=== PATIENT | female | born 2000 | race Caucasian/White ===

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

== ENCOUNTER 2021-09-07 06:28 | Emergency (ER) | payer BC, MEDICAID ==
[2021-09-07 06:43] VITALS: BP 121/89; PULSE 96
[2021-09-07] MEDS ORDERED: Sodium Chloride 0.9% 10 ML Syringe FLUSH PRN (07:06)
--- NOTE | 2021-09-07 07:31 | EDM.PDOC ---
ED HPI GENERAL MEDICAL PROBLEM - General Chief Complaint: Abdominal Pain Stated Complaint: [id number] STOMACH PAINS LEFT SIDE Time Seen by Provider: 09/07/21 07:00 Source of Information: Reports: Patient, Old Records, RN, RN Notes Reviewed History Limitations: Reports: No Limitations - History of Present Illness INITIAL COMMENTS - FREE TEXT/NARRATIVE: Pt presents to ER with c/o left sided abdominal pain x1 month. Pt states that initially the pain was at the LLQ and would come and go. She tried OTC products for constipation, but had no change in the symptoms. She then tried OTC products for gas without relief. The pain has slowly progressed and worsened. The pain is nearly constant now, but suddenly has sharp jabs that are severe and cause her to become nauseated. Recently the pain has increased in the area involved, now with pain from the suprapubic area to the LLQ, LUQ, and occasionally epigastric region. Denies fever, chills, vomiting, diarrhea, constipation, dysuria, flank pain, , irregular vaginal bleeding or vaginal discharge, rash, or unusual weight loss or gain. Duration: Constant, Recurring, Waxing/Waning Location: Reports: Abdomen Quality: Reports: Ache, Sharp Severity: Severe Improves with: Reports: None Worsens with: Reports: None Associated Symptoms: Reports: No Other Symptoms Left Lower Abdomen Pain Score (Numeric/FACES): 6 - Related Data Allergies Allergy/AdvReac Type Severity Reaction Status Date / Time No Known Allergies Allergy Verified 09/07/21 06:37 Home Meds: Home Meds Clindamycin HCl 150 mg PO DAILY 09/07/21 [History] Spironolactone [Aldactone] 25 mg PO DAILY 09/07/21 [History] Past Medical History - Past Health History Medical/Surgical History: Denies Medical/Surgical History HEENT History: Reports: None Cardiovascular History: Reports: None Respiratory History: Reports: None Gastrointestinal History: Reports: None Genitourinary History: Reports: None RESEARCH PHYSICIAN History: Reports: None Musculoskeletal History: Reports: None Neurological History: Reports: None Psychiatric History: Reports: None Endocrine/Metabolic History: Reports: None Hematologic History: Reports: None Immunologic History: Reports: None Oncologic (Cancer) History: Reports: None Dermatologic History: Reports: None - Infectious Disease History Infectious Disease History: Reports: None - Past Surgical History Head Surgeries/Procedures: Reports: None HEENT Surgical History: Reports: Other (See Below) Other HEENT Surgeries/Procedures: wisdom teeth removal Female Surgical History: Reports: D&C Social & Family History - Family History Family Medical History: No Pertinent Family History - Tobacco Use Tobacco Use Status *Q: Never Tobacco User - Caffeine Use Caffeine Use: Reports: Coffee, Energy Drinks, Soda - Recreational Drug Use Recreational Drug Use: No - Living Situation & Occupation Living situation: Reports: with Family Occupation: Student ED ROS GENERAL - Review of Systems Review Of Systems: Comprehensive ROS is negative, except as noted in HPI. ED EXAM, GI/ABD - Physical Exam Exam: See Below Exam Limited By: No Limitations General Appearance: Alert, WD/WN, No Apparent Distress Eyes: Bilateral: Normal Appearance (No scleral icterus) Nose: Normal Inspection Throat/Mouth: Normal Lips, Normal Voice, No Airway Compromise Head: Atraumatic, Normocephalic Neck: Normal Inspection Respiratory/Chest: No Respiratory Distress, Lungs Clear, Normal Breath Sounds, No Accessory Muscle Use, Chest Non-Tender Cardiovascular: Regular Rate, Rhythm, No Edema GI/Abdominal Exam: Normal Bowel Sounds, Soft, No Organomegaly, No Distention, No Abnormal Bruit, No Mass, Pelvis Stable, Tender (LLQ). No: Guarding, Rigid, Rebound (Female) Exam: Deferred Rectal (Female) Exam: Deferred Back Exam: Full Range of Motion. No: CVA Tenderness (L), CVA Tenderness (R), Vertebral Tenderness Extremities: Normal Inspection Neurological: Alert, Oriented, No Motor/Sensory Deficits Psychiatric: Normal Mood Skin Exam: Warm, Dry, Intact, Normal Color, No Rash Course - Vital Signs Last Recorded V/S: Last Vital Signs Temp 98.8 F 09/07/21 06:39 Pulse 96 09/07/21 06:39 Resp 16 09/07/21 06:39 BP 121/89 09/07/21 06:39 Pulse Ox 96 09/07/21 06:39 - Orders/Labs/Meds Orders: Active Orders 24 hr Category Date Time Status Peripheral IV Care [RC] . DIRECTED Care 09/07/21 07:07 Active Sodium Chloride 0.9% [Saline Flush] Med 09/07/21 07:06 Active 10 ml FLUSH ASDIRECTED PRN Peripheral IV Insertion Adult [OM.PC] Stat Oth 09/07/21 07:07 Ordered Medication Orders Sodium Chloride (Sodium Chloride 0.9% 10 Ml Syringe) 10 ml FLUSH ASDIRECTED PRN PRN Reason: Keep Vein Open Last Admin: 09/07/21 07:21 Dose: 10 ml Documented by: COMPA Labs: Laboratory Tests 09/07/21 09/07/21 09/07/21 Range/Units 07:09 07:09 07:21 WBC 4.4 L (5.0-10.0) 10^3/uL RBC 4.71 (4.2-5.4) 10^6/uL Hgb 13.7 (12.0-16.0) g/dL Hct 41.8 (37.0-47.0) % MCV 88.7 (80-100) fL MCH 29.1 (27.0-34.0) pg MCHC 32.8 L (33.0-35.0) g/dL Plt Count 190 (150-450) 10^3/uL Neut % (Auto) 61.3 (42.2-75.2) % Lymph % (Auto) 32.1 (20.5-50.1) % [place] % (Auto) 5.7 (2-8) % Eos % (Auto) 0.7 L (1.0-3.0) % Baso % (Auto) 0.2 (0.0-1.0) % Sodium (136-145) mmol/L Potassium (3.5-5.1) mmol/L Chloride (98-107) mmol/L Carbon Dioxide (21-32) mmol/L Anion Gap (7-13) mEq/L BUN (7-18) mg/dL Creatinine (0.55-1.02) mg/dL Est Cr Clr Drug Dosing mL/min Estimated GFR (MDRD) BUN/Creatinine Ratio (No establ ref range) Glucose (70-99) mg/dL Calcium (8.5-10.1) mg/dL Total Bilirubin (0.2-1.0) mg/dL AST (15-37) U/L ALT (14-59) U/L Alkaline Phosphatase (46-116) U/L C-Reactive Protein (0.0-0.9) mg/dL Total Protein (6.4-8.2) g/dL Albumin (3.4-5.0) g/dL Globulin Albumin/Globulin Ratio Amylase (25-115) U/L Lipase (73-393) U/L TSH, Ultra Sensitive (0.36-3.74) uIU/mL Urine Color Yellow (YELLOW) Urine Appearance Clear (CLEAR) Urine pH 7.0 (5.0-9.0) Ur Specific [place] 1.020 (1.005-1.030) Urine Protein Negative (NEGATIVE) Urine Glucose (UA) Negative (NEGATIVE) Urine Ketones Negative (NEGATIVE) Urine Occult Blood Negative (NEGATIVE) Urine Nitrite Negative (NEGATIVE) Urine Bilirubin Negative (NEGATIVE) Urine Urobilinogen 0.2 (0.2-1.0) mg/dL Ur Leukocyte Esterase Negative (NEGATIVE) Urine HCG, Qual Negative 09/07/21 Range/Units 07:21 WBC (5.0-10.0) 10^3/uL RBC (4.2-5.4) 10^6/uL Hgb (12.0-16.0) g/dL Hct (37.0-47.0) % MCV (80-100) fL MCH (27.0-34.0) pg MCHC (33.0-35.0) g/dL Plt Count (150-450) 10^3/uL Neut % (Auto) (42.2-75.2) % Lymph % (Auto) (20.5-50.1) % [place] % (Auto) (2-8) % Eos % (Auto) (1.0-3.0) % Baso % (Auto) (0.0-1.0) % Sodium 142 (136-145) mmol/L Potassium 4.0 (3.5-5.1) mmol/L Chloride 103 (98-107) mmol/L Carbon Dioxide 27 (21-32) mmol/L Anion Gap 16.0 H (7-13) mEq/L BUN 9 (7-18) mg/dL Creatinine 0.89 (0.55-1.02) mg/dL Est Cr Clr Drug Dosing 71.62 mL/min Estimated GFR (MDRD) > 60 BUN/Creatinine Ratio 10.1 (No establ ref range) Glucose 100 H (70-99) mg/dL Calcium 9.5 (8.5-10.1) mg/dL Total Bilirubin 0.4 (0.2-1.0) mg/dL AST 24 (15-37) U/L ALT 29 (14-59) U/L Alkaline Phosphatase 101 (46-116) U/L C-Reactive Protein < 0.2 (0.0-0.9) mg/dL Total Protein 8.3 H (6.4-8.2) g/dL Albumin 4.9 (3.4-5.0) g/dL Globulin 3.4 Albumin/Globulin Ratio 1.4 Amylase 74 (25-115) U/L Lipase 115 (73-393) U/L TSH, Ultra Sensitive 2.85 (0.36-3.74) uIU/mL Urine Color (YELLOW) Urine Appearance (CLEAR) Urine pH (5.0-9.0) Ur Specific [place] (1.005-1.030) Urine Protein (NEGATIVE) Urine Glucose (UA) (NEGATIVE) Urine Ketones (NEGATIVE) Urine Occult Blood (NEGATIVE) Urine Nitrite (NEGATIVE) Urine Bilirubin (NEGATIVE) Urine Urobilinogen (0.2-1.0) mg/dL Ur Leukocyte Esterase (NEGATIVE) Urine HCG, Qual Meds: Medications Generic Name Dose Route Start Last Admin Trade Name Freq PRN Reason Stop Dose Admin Sodium Chloride 10 ml 09/07/21 07:06 09/07/21 07:21 Sodium Chloride 0.9% 10 Ml Syringe FLUSH 10 ml ASDIRECTED PRN Administration Keep Vein Open - Radiology Interpretation Free Text/Narrative:: [facility] Final Radiology Report Call: [phone] assistance Online chat: [email or web address] Name: ELIJAH ROGERS Age: 20Years F Date: 09/07/2021 SSN: -- : 2000 Study: CR ABDOMEN 2V AP FLAT UPRIGHT Requesting Physician: RIGOBERTO SRINIVASAN Images: 2 Addl Studies: Provided Clinical History: Left abdominal pain Contrast: Contrast Medium: Contrast Amount: Contrast Method: CONFIDENTIALITY STATEMENT This report is intended only for use by the referring physician, and only in accordance with law. If you received this in error, call [phone]. Page 1 of 1 PROCEDURE INFORMATION: Exam: XR Abdomen Exam date and time: 09/07/2021 8:20 AM Age: 20 years old Clinical indication: Other: Left abd pain x 1 month; Additional info: Left abdominal pain TECHNIQUE: Imaging protocol: XR of the abdomen. Views: 2 Views. Upright and supine views. COMPARISON: No relevant prior exams. FINDINGS: Gastrointestinal tract: Normal. No bowel dilation. Intraperitoneal space: Normal. No free air. Bones/joints: Unremarkable for age. IMPRESSION: No acute findings. Thank you for allowing us to participate in the care of your patient. Dictated and Authenticated by: Ranulfo Goldstein MD 09/07/2021 8:52 AM Central Time ([place] & [place]) Departure - Departure Time of Disposition: 08:58 Disposition: Home, Self-Care 01 Condition: Good Clinical Impression: Abdominal pain Qualifiers: Abdominal location: left lower quadrant Qualified Code(s): R10.32 - Left lower quadrant pain - Discharge Information *PRESCRIPTION DRUG MONITORING PROGRAM REVIEWED*: Not Applicable *COPY OF PRESCRIPTION DRUG MONITORING REPORT IN PATIENT GRIFFIN: Not Applicable Instructions: Abdominal Pain, Adult, Pzca-[id number], Ovarian Cyst, [id number]-[id number] Forms: ED Department Discharge Additional Instructions: Follow up in clinic for further evaluation and consideration of ultrasound for ovarian cyst. Sepsis Event Note (ED) - Evaluation Sepsis Screening Result: No Definite Risk - Focused Exam Vital Signs: Vital Signs Temp Pulse Resp BP Pulse Ox 09/07/21 06:39 98.8 F 96 16 121/89 96 - My Orders Last 24 Hours: My Active Orders 09/07/21 07:06 Sodium Chloride 0.9% [Saline Flush] 10 ml FLUSH ASDIRECTED PRN 09/07/21 07:07 Peripheral IV Care [RC] . DIRECTED Peripheral IV Insertion Adult [OM.PC] Stat - Assessment/Plan Last 24 Hours: My Active Orders 09/07/21 07:06 Sodium Chloride 0.9% [Saline Flush] 10 ml FLUSH ASDIRECTED PRN 09/07/21 07:07 Peripheral IV Care [RC] . DIRECTED Peripheral IV Insertion Adult [OM.PC] Stat
[2021-09-07 07:55] LABS: CHLORIDE,CL 103 mmol/L (98-107); SODIUM,NA 142 mmol/L (136-145)
--- NOTE | 2021-09-07 08:53 | CR ---
PROCEDURE INFORMATION: Exam: XR Abdomen Exam date and time: 09/07/2021 8:20 AM Age: 20 years old Clinical indication: Other: Left abd pain x 1 month; Additional info: Left abdominal pain TECHNIQUE: Imaging protocol: XR of the abdomen. Views: 2 Views. Upright and supine views. COMPARISON: No relevant prior exams. FINDINGS: Gastrointestinal tract: Normal. No bowel dilation. Intraperitoneal space: Normal. No free air. Bones/joints: Unremarkable for age. IMPRESSION: No acute findings.
== END 2021-09-07 09:06 | disposition home or self-care (01) ==
LOC: DL.ED 06:28
DX: R10.32 Left lower quadrant pain (principal)
CPT/HCPCS: 36415; 74019; 80053; 81003; 81025; 82150; 83690; 84443; 85025; 86140; 99284-25

== ENCOUNTER 2023-10-03 03:11 | Inpatient (IN) | payer BC ==
[2023-10-03] MEDS ORDERED: Misoprostol 50 MCG (1/2 of 100 MCG) Tab VAG ONE (07:43)
[2023-10-03] MEDS ORDERED: Sodium Chloride 0.9% 10 ML Syringe FLUSH PRN (08:44)
[2023-10-03] MEDS ORDERED: Ondansetron 4 MG/2 ML SDV IVPUSH PRN (08:44)
[2023-10-03] MEDS ORDERED: Misoprostol 400 MCG (4 X 100 MCG TAB) RECTAL PRN (08:44)
[2023-10-03] MEDS ORDERED: Lidocaine 1% 30 ML SDV INJECT ONE (08:44)
[2023-10-03] MEDS ORDERED: Carboprost Tromethamine 250 MCG/1 ML Amp IM PRN (08:44)
[2023-10-03] MEDS ORDERED: Methylergonovine 0.2 MG/1 ML Amp IM PRN (08:44)
[2023-10-03] MEDS ORDERED: Lactated Ringers 1,000 ML IV ONE (08:44)
[2023-10-03] MEDS ORDERED: Acetaminophen 325 MG Tab PO PRN (08:44)
[2023-10-03] MEDS ORDERED: Tranexamic Acid 1,000 MG in Sodium Chloride 0.9% 100 ML IV PRN (08:44)
[2023-10-03] MEDS ORDERED: Lactated Ringers 1,000 ML IV SCH (08:45)
[2023-10-03] MEDS: Oxytocin/Normal Saline 30 UNIT/500 ML BAG IV SCH (08:50)
[2023-10-03 08:56] LABS: HEMATOCRIT 30.5 % (37.0-47.0); HEMOGLOBIN 9.8 g/dL (12.0-16.0); MEAN CORPUSCULAR HEMOGLOBIN 28.2 pg (27.0-34.0); MEAN CORPUSCULAR HGB CONC 32.1 g/dL (33.0-35.0); MEAN CORPUSCULAR VOLUME 87.6 fL (80-100); RED BLOOD CELL COUNT 3.48 10^6/uL (4.2-5.4); WHITE BLOOD CELL COUNT,WBC 10.9 10^3/uL (5.0-10.0)
[2023-10-03] MEDS ORDERED: hydrOXYzine HCl 25 MG Tab PO ONE (13:33)
[2023-10-03] MEDS ORDERED: hydrOXYzine HCl 25 MG Tab ONE (13:34)
[2023-10-03] MEDS: fentaNYL 100 MCG/2 ML SDV IVPUSH PRN ×3 (17:22→19:47)
[2023-10-03] MEDS ORDERED: fentaNYL 100 MCG/2 ML SDV ONE ×2 (20:17→20:49)
[2023-10-03] MEDS ORDERED: Bupivacaine 0.25% 10 ML SDV ONE (20:18)
[2023-10-03] MEDS ORDERED: Phenylephrine HCl In 0.9% NaCl 1 MG/10 ML Syringe IVPUSH PRN (20:45)
[2023-10-03] MEDS ORDERED: Ropivacaine 200 MG in Premix Bag 1 BAG EPIDUR SCH (20:45)
[2023-10-03] MEDS ORDERED: ePHEDrine 50 MG/ML SDV IVPUSH PRN (20:45)
[2023-10-04] MEDS ORDERED: Simethicone 80 MG Tab.Chew PO PRN (03:34)
[2023-10-04] MEDS ORDERED: Oxytocin 10 Units/1 ML SDV IM PRN (03:34)
[2023-10-04] MEDS ORDERED: Benzocaine/Menthol 20%-0.5% Spray 78 GM Cannister TOP PRN (03:34)
[2023-10-04] MEDS: hydrOXYzine HCl 25 MG Tab PO PRN ×2 (04:18→21:25)
[2023-10-04] MEDS: Ibuprofen 800 MG Tab PO PRN ×2 (04:18→13:36)
[2023-10-04] MEDS: Oxytocin/Normal Saline 30 UNIT/500 ML BAG IV SCH (04:25)
[2023-10-04] MEDS: Acetaminophen 325 MG Tab PO PRN ×2 (09:05→19:42)
[2023-10-04] MEDS: Prenatal Multivitamin with Calcium/Folic Acid/Iron Tab PO SCH (09:05)
[2023-10-04] MEDS: Docusate Sodium 100 MG Cap PO PRN ×2 (09:06→19:42)
[2023-10-04] MEDS ORDERED: Acetaminophen/HYDROcodone 325-5 MG Tab PO ONE (15:41)
[2023-10-04 21:25] LABS: APPEARANCE,URINE CLEAR (CLEAR); BILIRUBIN,URINE NEGATIVE (NEGATIVE); COLOR,URINE YELLOW (YELLOW); GLUCOSE,URINE NEGATIVE (NEGATIVE); KETONES,URINE NEGATIVE (NEGATIVE); LEUKOCYTE ESTERASE,URINE NEGATIVE (NEGATIVE); NITRITE,URINE NEGATIVE (NEGATIVE); OCCULT BLOOD,URINE TRACE-INTACT (NEGATIVE); PH,URINE 6.5 (5.0-9.0); PROTEIN,URINE NEGATIVE (NEGATIVE); UROBILINOGEN,URINE 0.2 mg/dL (0.2-1.0)
[2023-10-04 21:39] LABS: BACTERIA,URINE FEW /HPF (0-FEW/HPF); EPITHELIAL CELLS,URINE FEW /HPF (NOT SEEN); RBC,URINE 20-30 /HPF (0-5)
[2023-10-05] MEDS: Ibuprofen 800 MG Tab PO PRN ×3 (03:33→20:31)
[2023-10-05 07:11] LABS: HEMATOCRIT 26.6 % (37.0-47.0); HEMOGLOBIN 8.5 g/dL (12.0-16.0); MEAN CORPUSCULAR HEMOGLOBIN 28.1 pg (27.0-34.0); MEAN CORPUSCULAR VOLUME 88.1 fL (80-100); RED BLOOD CELL COUNT 3.02 10^6/uL (4.2-5.4); WHITE BLOOD CELL COUNT,WBC 10.6 10^3/uL (5.0-10.0)
[2023-10-05] MEDS: Acetaminophen 325 MG Tab PO PRN ×2 (08:27→17:02)
[2023-10-05] MEDS: Docusate Sodium 100 MG Cap PO PRN ×2 (08:28→20:32)
[2023-10-05] MEDS: Prenatal Multivitamin with Calcium/Folic Acid/Iron Tab PO SCH (08:28)
[2023-10-05] MEDS: hydrOXYzine HCl 25 MG Tab PO PRN (21:04)
[2023-10-06] MEDS ORDERED: Ropivacaine 100 ML EPIDUR ONE
[2023-10-06] MEDS ORDERED: Bupivacaine 0.25% 10 ML SDV NERVRT ONE
[2023-10-06] MEDS ORDERED: fentaNYL 100 MCG/2 ML SDV EPIDUR ONE
[2023-10-06] MEDS: Docusate Sodium 100 MG Cap PO PRN (10:13)
[2023-10-06] MEDS: Prenatal Multivitamin with Calcium/Folic Acid/Iron Tab PO SCH (10:13)
[2023-10-06] MEDS: Acetaminophen 325 MG Tab PO PRN (10:13)
[2023-10-06 12:05] VITALS: BP 114/74; PULSE 90
== END 2023-10-06 11:37 | disposition home or self-care (01) | DRG 560 ==
LOC: DL.OB 03:11 → OBSVTOIN 10-04 03:11
PROVIDERS: ADMIT Family Medicine; ATTEND Family Medicine
PROC: 10E0XZZ Delivery of Products of Conception, External Approach (ICD-10-PCS; principal; 2023-10-04)
PROC: 10907ZC Drainage of Amniotic Fluid, Therapeutic from Products of Conception, Via Natural or Artificial Opening (ICD-10-PCS; 2023-10-04)
PROC: 3E033VJ Introduction of Other Hormone into Peripheral Vein, Percutaneous Approach (ICD-10-PCS; 2023-10-04)
PROC: 3E0R3BZ Introduction of Anesthetic Agent into Spinal Canal, Percutaneous Approach (ICD-10-PCS; 2023-10-04)
PROC: 00HU33Z Insertion of Infusion Device into Spinal Canal, Percutaneous Approach (ICD-10-PCS; 2023-10-04)
PROC: 0KQM0ZZ Repair Perineum Muscle, Open Approach (ICD-10-PCS; 2023-10-04)
DX: O41.03X0 Oligohydramnios, third trimester, not applicable or unspecified (principal); Z37.0 Single live birth; Z3A.39 39 weeks gestation of pregnancy; O70.1 Second degree perineal laceration during delivery
CPT/HCPCS: 01967; 36415; 51701; 51702; 59300; 59409; 81001; 85027; 86592; 86762; A9270-GY; J2590; J2795; J3010; J3490; J7120

== ENCOUNTER 2023-10-08 10:40 | Emergency (ER) | payer BC ==
[2023-10-08 11:06] LABS: APPEARANCE,URINE SLIGHTLY CLOUDY (CLEAR); BILIRUBIN,URINE NEGATIVE (NEGATIVE); COLOR,URINE YELLOW (YELLOW); GLUCOSE,URINE NEGATIVE (NEGATIVE); KETONES,URINE NEGATIVE (NEGATIVE); LEUKOCYTE ESTERASE,URINE SMALL (NEGATIVE); NITRITE,URINE NEGATIVE (NEGATIVE); OCCULT BLOOD,URINE MODERATE (NEGATIVE); PH,URINE 7.5 (5.0-9.0); PROTEIN,URINE NEGATIVE (NEGATIVE); UROBILINOGEN,URINE 0.2 mg/dL (0.2-1.0)
[2023-10-08 11:21] LABS: BACTERIA,URINE MANY /HPF (0-FEW/HPF); EPITHELIAL CELLS,URINE FEW /HPF (NOT SEEN); RBC,URINE 50-75 /HPF (0-5); WBC,URINE 20-30 /HPF (0-5/HPF)
[2023-10-08 11:32] VITALS: BP 105/77; PULSE 82
[2023-10-08] MEDS ORDERED: Take Home: Cephalexin 500 MG Cap, 6 Cap Pack PO ONE (11:33)
== END 2023-10-08 11:51 | disposition home or self-care (01) ==
LOC: DL.ED 10:40
DX: O86.29 Other urinary tract infection following delivery (principal); O86.20 Urinary tract infection following delivery, unspecified; Z79.899 Other long term (current) drug therapy; Z91.040 Latex allergy status
CPT/HCPCS: 51701; 81001; 87086; 87088; 87186; 99283; A9270-GY; C1758